=== PATIENT | female | born 1935 | race Caucasian/White ===

== ENCOUNTER 2024-12-25 10:40 | Inpatient (IN) | payer OTHER ==
--- OUTSIDE RECORDS SUMMARY | 2024-12-25 10:43 | XMS REPORT | Continuity of Care Document ---
Author Name Unknown Address [address] [place] [id number] [facility] Address [address] [place] [address] [address] [place] [address] Care Team Providers Care Data Collector Name Role Phone KOMAL RAHMAN Attending Clinician Unavailable Encounters Start Date/Time End Date/Time Encounter Type Admission Type Attending Clinicians Care Facility Care Department Encounter ID Source 2023-07-31 11:25:00 2023-07-31 11:25:00 Outpatient KOMAL LEYVA [facility] [id number] [facility]
--- NOTE | 2024-12-25 11:19 | RAD REPORT ---
EXAMINATION: Head C Spine Mpr Wo Con CLINICAL INDICATION: Female, 89 years old. PAIN TECHNIQUE: Axial CT images from the skull base to the vertex without intravenous contrast. Axial CT i mages through the cervical spine were obtained without intravenous contrast. Sagittal and coronal reformatted images were created from the data set. Coronal and sagittal reformatted images were creat ed from the data set. One or more of the following dose reduction techniques were used: Automated exposure control, adjustment of the mA and/or kV according to patient size, and/or iterative reconstr uction. Unless otherwise specified, incidental findings do not require dedicated imaging follow-up. [id number]. COMPARISON: 11/30/2024 FINDINGS: Head: INTRACRANIAL: No acute intracranial hemorrhage. No acute large vascular territory infarct. No hydroce phalus. No mass effect or midline shift. Mild chronic small vessel ischemic changes.Moderate cerebral atrophy. Remote left basal ganglia lacunar infarct versus dilated perivascular space. VASCULATURE: No visualized abnormalities in the arteries or dural venous sinuses. SCALP/SKULL: No calvarial fracture identified. No acute soft tissue abnormality. SINUSES: The visualized paranasal sinuses are mostly clear. No significant mastoid fluid. Cervical spine: ALIGNMENT: The cervical spine has normal alignment without scoliosis or spondylolisthesis. BONE: Vertebral body heights are maintained. No aggressive osseous lesions. DEGENERATIVE: No significant focal degenerative changes. SOFT TISSUE: No significant abnormalities in the soft tissue of the neck. The visualized lung apices are clear. IMPRESSION: No acute intracranial abnormality. No acute fracture or traumatic malalignment of the cervical spine.
[2024-12-25] MEDS ORDERED: NA CHLORIDE 0.9% 1,000 ML ONE (11:20)
[2024-12-25] MEDS ORDERED: NA CHLORIDE 0.9% 500 ML ONE (11:20)
[2024-12-25] MEDS ORDERED: CEFTRIAXONE 1000 MG/VIAL ONE (11:20)
[2024-12-25] MEDS ORDERED: NA CHLORIDE 0.9% 50 ML ONE (11:21)
--- NOTE | 2024-12-25 11:40 | RAD REPORT ---
EXAM: Chest Abd Pelvis Wo Con CLINICAL INDICATION: Female, 89 years old pain TECHNIQUE: CT chest, abdomen and pelvis was performed, without IV contrast, as per department protoco l. Axial, sagittal and coronal reconstructions were obtained. One or more of the following dose reduction techniques were used: Automated exposure control, adjustment of the mA and/or kV according to the patient size, and/or iterative reconstruction. Unless otherwise specified, incidental findings do not require dedicated imaging follow-up. [id number]. COMPARISON: 11/30/2024 FINDINGS: The lack of intravenous contrast limits the sensitivity of this exam for evaluation of solid visceral organs, vascular structures, and retroperitoneum. ---THORAX--- LOWER NECK AND CHEST WALL: Visualized thyroid gland and soft tissues are normal. MEDIASTINUM AND LYMPH NODES: No mediastinal mass or fluid collection. Normal size mediastinal, hilar, and axillary lymph nodes. Diffuse esophageal wall thickening. THORACIC AORTA: No thoracic aortic aneurysm. Atherosclerotic changes are present. PULMONARY ARTERIES: Enlarged main pulmonary arteries could indicate pulmonary artery hypertension. Un able to evaluate for pulmonary emboli due to either protocol or lack of contrast. HEART: Normal heart size. Moderate coronary artery calcifications.Small pericardial effusion. Aortic valve calcifications. LUNGS AND AIRWAYS: The lungs are clear bilaterally. 4 mm right lower lobe nodule is unchanged and cobb s not require follow-up. PLEURA: No pleural effusion. No pneumothorax. ---ABDOMEN/PELVIS--- UPPER GI: No significant abnormality. LIVER: Benign appearing low density liver lesions. No suspicious mass. GALLBLADDER/BILE DUCTS: No biliary ductal dilatation.? PANCREAS: No mass, ductal dilation, or winifred-pancreatic fluid. SPLEEN: Unremarkable. ADRENALS: Adrenal thickening without discrete mass. KIDNEYS AND URETERS: No hydronephrosis.Limited evaluation for renal lesions in the absence of IV cont rast.No renal calculi.No ureteral calculi. ABDOMINAL AORTA AND OTHER VESSELS: Moderate atherosclerotic changes without aortic aneurysm. PERITONEUM: No abnormal free fluid. No free air. LYMPH NODES: No pathologic lymphadenopathy. ABDOMINAL WALL: Unremarkable SMALL BOWEL/COLON: Wall thickening present at the ascending and proximal transverse colon. URINARY BLADDER: Underdistended but grossly unremarkable. REPRODUCTIVE ORGANS: No pathologic process. ---COMBINED--- MUSCULOSKELETAL: L1 vertebroplasty changes, similar. Remote right obturator ring fracture. ADDITIONAL FINDINGS: None. IMPRESSION: No evidence of significant trauma to the chest, abdomen, or pelvis. Wall thickening at the hepatic flexure likely reflecting a colitis. This is new from prior.
[2024-12-25 11:44] LABS: Absolute Lymphocytes (CBC) 0.8 K/uL (0.7-4.9); Hematocrit 33.6 % (36.0-45.0); Hemoglobin 11.3 g/dL (12.0-15.0); MCH 30.7 pg (27.0-35.0); MCHC 33.7 g/dL (32.0-36.0); MCV 91.1 fL (80-100); MPV 7.0 fL (7.6-11.3); Nucleated RBC Absolute Count 0.0 (0-0); Nucleated Red Blood Cells % 0.0 % (0-0); RBC Red Blood Cell Count 3.69 M/uL (3.86-4.86); White Blood Count 7.50 thou/uL (4.3-10.9)
[2024-12-25 11:54] LABS: PT Prothrombin Time 11.9 SECONDS (10-13.0); Protime INR 1.05
[2024-12-25 12:08] LABS: AST/SGOT 14 U/L (15-37); Albumin 3.6 g/dL (3.4-5.0); Albumin/Globulin Ratio 1.1 (1.1-1.8); Alkaline Phosphatase 62 U/L (45-117); Anion Gap 10.6 mEq/L (5.0-15.0); BUN Blood Urea Nitrogen 12 mg/dL (7-18); Bilirubin Indirect, Calculated 0.6 mg/dL (0.2-0.8); Globulin 3.3 g/dL (2.3-3.5); Glucose Level 120 mg/dL (74-106); Lipase 79 U/L (13-75); Magnesium 2.1 mg/dL (1.6-2.4); NT PRO-BNP 237 pg/mL (<450); Potassium 3.6 mEq/L (3.5-5.1); Troponin High Sensitivity 7.0 pg/mL (<58.9)
[2024-12-25 12:10] LABS: ALT/SGPT < 14 U/L (13-56)
--- NOTE | 2024-12-25 12:28 | RAD REPORT ---
EXAM: Chest Single View HISTORY: 89 years Female COUGH COMPARISON: No prior exams FINDINGS: LUNGS/PLEURA: The lungs are clear. No pleural effusions or pneumothorax. No pulmonary edema. CARDIAC/MEDIASTINUM: The cardiac silhouette is within normal limits. UPPER ABDOMEN: No significant abnormality. BONES: No acute abnormality. LINES/TUBES/OTHER: N/A IMPRESSION: No evidence of acute cardiopulmonary disease.
[2024-12-25] MEDS ORDERED: FAMOTIDINE 20 MG/2 ML VIAL IV ONE (13:15)
[2024-12-25] MEDS ORDERED: HYDROCORTISONE SUC 100 MG INJ ONE (13:15)
[2024-12-25 13:24] LABS: Sqamous Epithelial <5 /HPF (None Seen); Urine Culture Reflex Order NOT NEEDED; Urine Microscopic Reflex YN ORDER UMIC
--- NOTE | 2024-12-25 13:36 | ER ---
Nurse's Notes [facility] Name: Gloria Han Age: 89 yrs Sex: Female : 1935 Arrival Date: 12/25/2024 Time: 10:40 Bed 20 Private MD: Diagnosis: Weakness;Repeated falls;Fall on same level, unspecified;Dementia in other diseases classified elsewhere without behavioral disturbance;Anorexia;Noninfective gastroenteritis and colitis, unspecified Presentation: 12/25 10:49 Chief complaint: Patient states: Fell night in bathroom, got herself up. Her ll1 back started to hurt Monday and can only walk a few feet now. Coronavirus screen: Client denies travel out of the [place] in the last 14 days. At this time, the client does not indicate any symptoms associated with coronavirus-19. Ebola Screen: Patient denies travel to an Ebola-affected area in the 21 days before illness onset. Initial Sepsis Screen: Does the patient meet any 2 criteria? No. Patient's initial sepsis screen is negative. Does the patient have a suspected source of infection? No. Patient's initial sepsis screen is negative. Risk Assessment: Do you want to hurt yourself or someone else? Patient reports no desire to harm self or others. Onset of symptoms was December 19, 2024. 10:49 Method Of Arrival: Wheelchair ll1 10:49 Acuity: MONIE 3 ll1 13:00 Care prior to arrival: None. Mechanism of Injury: Fall from standing position. Trauma db event details: Injury occurred in the [facility]. Historical: - Allergies: 10:48 amlodipine; ll1 10:48 Clindamycin; ll1 10:48 Codeine; ll1 - PMHx: 10:48 kidney disease; lumbarsacaral spondylosis with radiculopathy; Dementia; Hypertensive ll1 disorder; insomia; Gastroesophageal reflux disease; degenerative scoliosis; Major Depressive Disorder; lumbar back pain; Anemia; Osteoporotic verebral compression FX L1; Parkinson's disease; - Immunization history:: Adult Immunizations up to date. - Infectious Disease History:: Denies. - Immunization history: Last tetanus immunization: unknown. - Social history:: Smoking status: Patient denies any tobacco usage or history of. - Family history:: not pertinent. Screenin:42 [facility] ED Fall Risk Assessment (Adult) History of falling in the last 3 months, db including since admission Yes- fall prone (multiple falls) (3 pts) Confusion or Disorientation Yes (5 pts) Intoxicated or Sedated No (0 pts) Impaired Gait Yes (1 pt) Mobility Assist Device Used Yes (1 pt) Altered Elimination No (0 pt) Score/Fall Risk Level 3 or more points = High Risk Oriented to surroundings, Maintained a safe environment, Hourly rounding (assess needs \T\ fall precautionary measures) done, Remained w/in arm's length of patient and in sight while toileting, Remained with patient while ambulating. Abuse screen: Denies threats or abuse. Denies injuries from another. Nutritional screening: No deficits noted. Tuberculosis screening: No symptoms or risk factors identified. Primary Survey: 12:00 NO uncontrolled hemorrhage observed. A: The client is awake and alert. The airway is db patent. The client is alert. Airway: patent. Breathing/Chest: Spontaneous respiratory effort, equal unlabored respirations, breath sounds clear bilaterally, regular pattern, symmetrical chest rise and fall. Respiratory effort: spontaneous, unlabored. Circulation: No external hemorrhage present. Regular and strong central pulse, skin warm/dry/normal color. Disability Client is alert. Exposure/Environment: A warming method has been applied: A warm blanket has been provided to the patient. Reassessment Alertness and Airway: Awake and alert. The airway is patent. Breathing: Spontaneous respiratory effort, equal unlabored respirations, breath sounds clear bilaterally, regular pattern with symmetrical chest rise and fall. Circulation: No external hemorrhage noted. Regular and strong central pulse, skin warm/dry/normal color. Disability: Alert. Assessment: 11:30 Reassessment: Patient appears in no apparent distress at this time. Patient and/or db family updated on plan of care and expected duration. Pain level reassessed. PT ATTEMPTED TO URINATE IN HAT AND MISSED. WILL ATTEMPT AGAIN AFTER FLUID BOLUS. General: Appears in no apparent distress. comfortable, Behavior is calm, cooperative. Neuro: Level of Consciousness is awake, alert, obeys commands, Oriented to person, place, time, situation. 13:05 Reassessment: PT AMBULATORY TO RESTROOM. db 14:00 Reassessment: Patient appears in no apparent distress at this time. Patient and/or db family updated on plan of care and expected duration. Pain level reassessed. 15:03 Reassessment: Patient appears in no apparent distress at this time. Patient and/or db family updated on plan of care and expected duration. Pain level reassessed. PT AMBULATORY TO RESTROOM. General: Appears in no apparent distress. comfortable, Behavior is calm, cooperative, appropriate for age. 15:06 Respiratory: Airway is patent Respiratory effort is even, unlabored, Respiratory db pattern is regular, symmetrical. 16:00 Reassessment: Patient appears in no apparent distress at this time. Patient and/or db family updated on plan of care and expected duration. Pain level reassessed. General: Appears in no apparent distress. comfortable. Pain: Denies pain. 17:30 Reassessment: Patient appears in no apparent distress at this time. Patient and/or db family updated on plan of care and expected duration. Pain level reassessed. Vital Signs: 10:49 BP 104 / 47; Pulse 83; Resp 16; Temp 97.2; Pulse Ox 100% ; Weight 49.9 kg; Height 5 ft. ll1 8 in. ; Pain 0/10; 13:05 BP 137 / 71; Pulse 76; Resp 16; Pulse Ox 99% on R/A; db 13:30 BP 130 / 54; Pulse 76; Resp 16; Pulse Ox 99% ; db 14:00 BP 111 / 47; Pulse 74; Resp 14; Pulse Ox 99% on R/A; db 15:00 BP 131 / 58; Pulse 75; Resp 14; Pulse Ox 99% ; db 16:30 BP 149 / 57; Pulse 76; Resp 18; Pulse Ox 98% on R/A; db 17:30 BP 130 / 59; Pulse 71; Resp 16; Pulse Ox 99% on R/A; db 10:49 Body Mass Index 16.73 (49.90 kg, 172.72 cm) ll1 10:49 Pain Scale: Adult ll1 [place] Coma Score: 13:22 Eye Response: spontaneous(4). Motor Response: obeys commands(6). Verbal Response: db oriented(5). Total: 15. Trauma Score (Adult): 13:22 Eye Response: spontaneous(1); Verbal Response: oriented(1); Motor Response: obeys db commands(2); Systolic BP: > 89 mm Hg(4); Respiratory Rate: 10 to 29 per min(4); Donna Score: 15; Trauma Score: 12 ED Course: 10:43 Patient arrived in ED. im 10:44 Tima Cordon MD is Attending Physician. eloy 10:48 Arm band placed on. ll1 10:54 Triage completed. ll1 11:12 Chest Abd Pelvis Wo Con In Process Unspecified. EDMS 11:13 Head C Spine Mpr Wo Con In Process Unspecified. EDMS 11:20 XRAY Chest (1 view) In Process Unspecified. EDMS 11:35 Initial lab(s) drawn, by me, sent to lab. Inserted saline lock: 20 gauge in right db antecubital area, using aseptic technique. Blood collected. Flushed with 10 mL NS. 11:40 Yris Alford, RN is Primary Nurse. db 11:43 Patient has correct armband on for positive identification. Bed in low position. Call db light in reach. Side rails up X 1. Client placed on continuous cardiac and pulse oximetry monitoring. NIBP monitoring applied. groundwater monitoring technician on. Pulse ox on. NIBP on. Warm blanket given. 11:47 EKG done, by water restoration technician. ts3 12:00 Thermoregulation: warm blanket given to patient. db 13:34 Quoc Whitman is Hospitalizing Provider. [facility] 17:35 Provided Education on: ADMISSION. db 17:35 No provider procedures requiring assistance completed. Patient admitted, IV remains in db place. Administered Medications: 11:35 Drug: NS 0.9% IV 500 ml 500 ml IV at 1 bolus once; to be given as a bolus over 30 db minutes Volume: 500 ml; Route: IV; Rate: 1 bolus; Site: right antecubital; 15:07 Follow up: IV Status: Completed infusion; IV Intake: 500ml db 15:07 Follow up: Response: No adverse reaction db 11:40 Drug: Rocephin IV 1 grams IV at per protocol once; Given slow IV push per pharmacy db instructions Route: IV; Rate: per protocol; Site: right antecubital; 15:07 Follow up: Response: No adverse reaction; IV Status: Completed infusion; IV Intake: 50mldb 12:30 Drug: NS 0.9% IV 1000 ml IV at 125 ml/hr once Route: IV; Rate: 125 ml/hr; Site: right db antecubital; 17:00 Follow up: IV Status: Infusion continued upon admission db 13:40 Drug: Solu-CORTEF IVP 100 mg IVP once Route: IVP; Site: right antecubital; db 15:07 Follow up: Response: No adverse reaction db 13:40 Drug: Famotidine IVP 20 mg IVP once; dilute with 10 mL 0.9% NaCl; give over 2 minutes db Route: IVP; Site: right antecubital; 15:06 Follow up: Response: No adverse reaction db Medication: 14:00 VIS not applicable for this client. db Intake: 15:07 IV: 500ml; Total: 500ml. db 15:07 IV: 50ml; Total: 550ml. db Outcome: 13:35 Decision to Hospitalize by Provider. eloy 17:35 Admitted to Med/surg room 2 nd floor, db 17:35 Condition: stable 17:35 Instructed on the need for admit, 17:37 Patient left the ED. bc6 Signatures: Dispatcher [employer] EDSD Tima Cordon MD MD cha Lewis, Lynsay RN RN ll1 Yris Alford RN RN Pamela Cast bc6 Tanika Hopson Taisha ts3 Corrections: (The following items were deleted from the chart) 15:06 15:03 Reassessment: Patient appears in no apparent distress at this time. Patient db and/or family updated on plan of care and expected duration. Pain level reassessed. Patient is alert, oriented x 3, equal unlabored respirations, skin warm/dry/pink. PT AMBULATORY TO RESTROOM db 15:06 11:42 [facility] ED Fall Risk Assessment (Adult) History of falling in the last 3 months, db including since admission No falls in past 3 months (0 pts) Confusion or Disorientation Yes (5 pts) Intoxicated or Sedated No (0 pts) Impaired Gait No (0 pts) Mobility Assist Device Used No (0 pt) Altered Elimination No (0 pt) Score/Fall Risk Level 3 or more points = High Risk Oriented to surroundings, Maintained a safe environment, db
--- NOTE | 2024-12-25 13:36 | EDPHYS ---
Physician Documentation [facility] Name: Gloria Han Age: 89 yrs Sex: Female : 1935 Arrival Date: 12/25/2024 Time: 10:40 Bed 20 Private MD: MARLYN Physician Tima Cordon HPI: 12/25 13:22 This 89 yrs old Female presents to ER via Wheelchair with complaints of Fall eloy Injury, Urinary Problem. 13:22 Details of fall: The patient fell from an upright position, while walking. Onset: The eloy symptoms/episode began/occurred yesterday. Associated injuries: The patient sustained no obvious injury. Associated injuries: The patient sustained no obvious injury, neck injury, upper back injury, injury to the low back, decreased range of motion. Severity of symptoms: At their worst the symptoms were mild, in the emergency department the symptoms are unchanged. The patient has experienced similar episodes in the past, several times. Historical: - Allergies: 10:48 amlodipine; ll1 10:48 Clindamycin; ll1 10:48 Codeine; ll1 - PMHx: 10:48 kidney disease; lumbarsacaral spondylosis with radiculopathy; Dementia; Hypertensive ll1 disorder; insomia; Gastroesophageal reflux disease; degenerative scoliosis; Major Depressive Disorder; lumbar back pain; Anemia; Osteoporotic verebral compression FX L1; Parkinson's disease; - Immunization history:: Adult Immunizations up to date. - Infectious Disease History:: Denies. - Immunization history: Last tetanus immunization: unknown. - Social history:: Smoking status: Patient denies any tobacco usage or history of. - Family history:: not pertinent. ROS: 13:22 Constitutional: Negative for fever, chills, and weight loss, Eyes: Negative for injury, eloy pain, redness, and discharge, ENT: Negative for injury, pain, and discharge, Neck: Negative for injury, pain, and swelling, Cardiovascular: Negative for chest pain, palpitations, and edema, Respiratory: Negative for shortness of breath, cough, wheezing, and pleuritic chest pain, Abdomen/GI: Negative for abdominal pain, nausea, vomiting, diarrhea, and constipation, : Negative for injury, bleeding, discharge, and swelling, MS/Extremity: Negative for injury and deformity, Skin: Negative for injury, rash, and discoloration, Psych: Negative for depression, anxiety, suicide ideation, homicidal ideation, and hallucinations, Allergy/Immunology: Negative for hives, rash, and allergies, Endocrine: Negative for neck swelling, polydipsia, polyuria, polyphagia, and marked weight changes, Hematologic/Lymphatic: Negative for swollen nodes, abnormal bleeding, and unusual bruising, 13:22 Back: Positive for decreased range of motion, pain at rest, pain with movement, of the thoracic area and lumbar area, 13:22 MS/extremity: Negative for acute changes, injury or acute deformity, decreased range of motion, Exam: 13:22 Constitutional: This is a well developed, well nourished patient who is awake, alert, eloy and in no acute distress. Head/Face: Normocephalic, atraumatic. Eyes: Pupils equal round and reactive to light, extra-ocular motions intact. Lids and lashes normal. Conjunctiva and sclera are non-icteric and not injected. Cornea within normal limits. Periorbital areas with no swelling, redness, or edema. ENT: Nares patent. No nasal discharge, no septal abnormalities noted. Tympanic membranes are normal and external auditory canals are clear. Oropharynx with no redness, swelling, or masses, exudates, or evidence of obstruction, uvula midline. Mucous membranes moist. Neck: Trachea midline, no thyromegaly or masses palpated, and no cervical lymphadenopathy. Supple, full range of motion without nuchal rigidity, or vertebral point tenderness. No Meningismus. Chest/axilla: Normal chest wall appearance and motion. Nontender with no deformity. No lesions are appreciated. Cardiovascular: Regular rate and rhythm with a normal S1 and S2. No gallops, murmurs, or rubs. Normal PMI, no JVD. No pulse deficits. Respiratory: Lungs have equal breath sounds bilaterally, clear to auscultation and percussion. No rales, rhonchi or wheezes noted. No increased work of breathing, no retractions or nasal flaring. Abdomen/GI: Soft, non-tender, with normal bowel sounds. No distension or tympany. No guarding or rebound. No evidence of tenderness throughout. Female : Normal external genitalia. Skin: Warm, dry with normal turgor. Normal color with no rashes, no lesions, and no evidence of cellulitis. MS/ Extremity: Pulses equal, no cyanosis. Neurovascular intact. Full, normal range of motion., bilateral aka Neuro: Awake and alert, GCS 15, oriented to person, place, time, and situation. Cranial nerves II-XII grossly intact. Motor strength 5/5 in all extremities. Sensory grossly intact. Cerebellar exam normal. Normal gait. Psych: Awake, alert, with orientation to person, place and time. Behavior, mood, and affect are within normal limits. 13:22 ECG was reviewed by the Attending Physician. 13:22 Back: pain, that is mild, that is moderate, ROM is painful, normal spinal alignment noted, CVA tenderness, is absent, vertebral tenderness, is not appreciated, Vital Signs: 10:49 BP 104 / 47; Pulse 83; Resp 16; Temp 97.2; Pulse Ox 100% ; Weight 49.9 kg; Height 5 ft. ll1 8 in. ; Pain 0/10; 13:05 BP 137 / 71; Pulse 76; Resp 16; Pulse Ox 99% on R/A; db 13:30 BP 130 / 54; Pulse 76; Resp 16; Pulse Ox 99% ; db 14:00 BP 111 / 47; Pulse 74; Resp 14; Pulse Ox 99% on R/A; db 15:00 BP 131 / 58; Pulse 75; Resp 14; Pulse Ox 99% ; db 16:30 BP 149 / 57; Pulse 76; Resp 18; Pulse Ox 98% on R/A; db 17:30 BP 130 / 59; Pulse 71; Resp 16; Pulse Ox 99% on R/A; db 10:49 Body Mass Index 16.73 (49.90 kg, 172.72 cm) ll1 10:49 Pain Scale: Adult ll1 Donna Coma Score: 13:22 Eye Response: spontaneous(4). Motor Response: obeys commands(6). Verbal Response: db oriented(5). Total: 15. Trauma Score (Adult): 13:22 Eye Response: spontaneous(1); Verbal Response: oriented(1); Motor Response: obeys db commands(2); Systolic BP: > 89 mm Hg(4); Respiratory Rate: 10 to 29 per min(4); Donna Score: 15; Trauma Score: 12 MDM: 10:44 Medical Screening Exam initiated eloy 10:50 Medical Screening Exam initiated eloy 13:28 Differential diagnosis: closed head injury, contusion, fracture, multiple trauma, eloy sprain, strain. Data reviewed: vital signs, nurses notes, EMS record, lab test result(s), EKG, radiologic studies, CT scan, plain films. Consideration of Admission/Observation Patient was admitted/placed on observation. Escalation of care including admission/observation considered. I considered the following discharge prescriptions or medication management in the emergency department Medications were administered in the Emergency Department. See MAR. Independent interpretation of the following test(s) in the Emergency Department EKG: See my EKG interpretation above. Test considered but Not performed: MRI: no mri lumbar, brain. Historians other than the Patient: Family Member: family well informed. Care significantly affected by the following chronic conditions: Hypertension, Chronic Kidney Disease, lumbar pain, radiculopathy. Counseling: I had a detailed discussion with the patient and/or guardian regarding the historical points, exam findings, and any diagnostic results supporting the discharge/admit diagnosis, lab results, radiology results, the need for further work-up and treatment in the hospital. 12/25 10:47 Order name: Basic Metabolic Panel; Complete Time: 12:48 eloy 12/25 10:47 Order name: CBC with Diff; Complete Time: 12:48 eloy 12/25 10:47 Order name: LFT's; Complete Time: 12:48 12/25 10:47 Order name: Magnesium; Complete Time: 12:48 eloy 12/25 10:47 Order name: NT PRO-BNP; Complete Time: 12:48 12/25 10:47 Order name: PT-INR; Complete Time: 12:48 12/25 10:47 Order name: Troponin HS; Complete Time: 12:48 12/25 10:47 Order name: Lipase; Complete Time: 12:48 eloy 12/25 10:47 Order name: UA Rfx Farhat Cult if indicated eloy 12/25 16:28 Order name: CBC with Automated Diff EDMS 12/25 16:28 Order name: CBC with Automated Diff EDMS 12/25 16:28 Order name: Comprehensive Metabolic Panel EDMS 12/25 16:28 Order name: Comprehensive Metabolic Panel EDMS 12/25 16:28 Order name: Creatine Phosphokinase EDMS 12/25 16:28 Order name: Creatine Phosphokinase EDMS 12/25 16:28 Order name: Creatine Phosphokinase EDMS 12/25 16:28 Order name: Creatine Phosphokinase EDMD 12/25 16:28 Order name: Lipid Profile EDMD 12/25 16:28 Order name: Lipid Profile EDMD 12/25 16:28 Order name: Protime (+INR) EDMD 12/25 16:28 Order name: Protime (+INR) EDMD 12/25 16:28 Order name: PTT, Activated Partial Thromb EDMD 12/25 16:28 Order name: PTT, Activated Partial Thromb EDMD 12/25 16:30 Order name: C-Reactive Protein EDMD 12/25 16:30 Order name: Iron EDMD 12/25 16:30 Order name: Procalcitonin EDMD 12/25 16:30 Order name: Vitamin B12 Level EDMD 12/25 10:47 Order name: XRAY Chest (1 view); Complete Time: 12:48 [facility] [place] 12/25 10:54 Order name: Chest Abd Pelvis Wo Con; Complete Time: 12:48 [facility] 12/25 10:56 Order name: Head C Spine Mpr Wo Con; Complete Time: 12:48 [facility] 12/25 10:47 Order name: Cardiac monitoring; Complete Time: 11:40 [facility] 12/25 10:47 Order name: EKG - Nurse/Tech; Complete Time: 11:47 [facility] [place] 12/25 10:47 Order name: IV Saline Lock; Complete Time: 11:41 [facility] [place] 12/25 10:47 Order name: Labs collected and sent; Complete Time: 11:41 [facility] [place] 12/25 10:47 Order name: O2 Per Protocol; Complete Time: 11:41 [facility] [place] 12/25 10:47 Order name: O2 Sat Monitoring; Complete Time: 11:41 [facility] [place] 12/25 12:50 Order name: Misc. Order: GET UA; Complete Time: 13:21 [facility] [place] EC:22 Rate is 78 beats/min. Rhythm is regular. QRS [place] is Normal. FL interval is normal. QRS eloy interval is normal. QT interval is normal. No Q waves. T waves are Normal. No ST changes noted. Clinical impression: NSR w/ Non-specific ST/T Changes and No evidence of ischemia. Interpreted by me. Reviewed by me. Administered Medications: 11:35 Drug: NS 0.9% IV 500 ml 500 ml IV at 1 bolus once; to be given as a bolus over 30 db minutes Volume: 500 ml; Route: IV; Rate: 1 bolus; Site: right antecubital; 15:07 Follow up: IV Status: Completed infusion; IV Intake: 500ml db 15:07 Follow up: Response: No adverse reaction db 11:40 Drug: Rocephin IV 1 grams IV at per protocol once; Given slow IV push per pharmacy db instructions Route: IV; Rate: per protocol; Site: right antecubital; 15:07 Follow up: Response: No adverse reaction; IV Status: Completed infusion; IV Intake: 50mldb 12:30 Drug: NS 0.9% IV 1000 ml IV at 125 ml/hr once Route: IV; Rate: 125 ml/hr; Site: right db antecubital; 17:00 Follow up: IV Status: Infusion continued upon admission db 13:40 Drug: Solu-CORTEF IVP 100 mg IVP once Route: IVP; Site: right antecubital; db 15:07 Follow up: Response: No adverse reaction db 13:40 Drug: Famotidine IVP 20 mg IVP once; dilute with 10 mL 0.9% NaCl; give over 2 minutes db Route: IVP; Site: right antecubital; 15:06 Follow up: Response: No adverse reaction db Disposition Summary: 12/25/24 13:35 Hospitalization Ordered Notes: Hospitalization Status: Inpatient Admission eloy Provider: Quoc Whitman cha [facility] Condition: Fair eloy Problem: new eloy Symptoms: have improved eloy Bed/Room Type: Standard eloy Room Assignment: 229(12/25/24 16:44) bd Diagnosis - Weakness eloy - Repeated falls eloy - Fall on same level, unspecified eloy - Dementia in other diseases classified elsewhere without behavioral disturbance eloy - Anorexia eloy - Noninfective gastroenteritis and colitis, unspecified eloy Forms: - Medication Reconciliation Form eloy - SBAR form eloy - Leadership Thank You Letter eloy Signatures: Dispatcher [employer] EDMS Radha Koo Corey, MD MD cha Lewis, Lynsay RN RN ll1 Yris Alford RN RN db Corrections: (The following items were deleted from the chart) 10:47 10:47 BASIC METABOLIC PANEL+C.LAB.BRZ ordered. EDMS EDMS 10:47 10:47 CBC+H.LAB.BRZ ordered. EDMS EDMS 10:47 10:47 HEPATIC FUNCTION+C.LAB.BRZ ordered. EDMS EDMS 10:47 10:47 MAGNESIUM+C.LAB.BRZ ordered. EDMS EDMS 10:47 10:47 PROBNP+C.LAB.BRZ ordered. EDMS EDMS 10:47 10:47 PROTIME (+INR)+COAG.LAB.BRZ ordered. EDMS EDMS 10:47 10:47 Troponin High Sensitivity+C.LAB.BRZ ordered. EDMS EDMS 10:47 10:47 LIPASE+C.LAB.BRZ ordered. EDMS EDMS 10:47 10:47 UA Rfx Farhat Cult if indicated+U.LAB.BRZ ordered. EDMS EDMS 10:47 10:47 Chest Single View+RAD.RAD.BRZ ordered. EDMS EDMS 10:47 10:47 Head C Spine Cap Wo Con+CT.RAD.BRZ ordered. EDMS EDMS 16:44 13:35 eloy bd
[2024-12-25] MEDS ORDERED: ACETAMINOPHEN 500 MG TAB PO PRN (16:24)
[2024-12-25] MEDS ORDERED: ONDANSETRON 4 MG/2 ML VIAL IV PRN (16:24)
--- NOTE | 2024-12-25 16:27 | P.HP ---
Certification for Inpatient Patient admitted to: Inpatient With expected LOS: >2 Midnights Patient will require the following post-hospital care: Rehabilitation Practitioner: I am a practitioner with admitting privileges, knowledge of patient current condition, hospital course, and medical plan of care. Services: Services provided to patient in accordance with Admission requirements found in Title 42 Section 412.3 of the Code of Federal Regulations Patient History Date of Service: 12/25/24 Reason for admission: Status post fall with severe pain on ambulation History of Present Illness: Patient is an 89-year-old female who has a history of Alzheimer's dementia as well as Parkinson disease lives at [facility] who presented to the emergency room with pain on ambulating. Patient normally gets around fairly well at the assisted living, but over the last few weeks she has found it more and more difficult to ambulate. She apparently had fallen a week ago and since the fall she suffered a hematoma to the right pelvis. She has a lot of bruising in that region. Whenever she puts any pressure on it she decides not to move. The family decided to come into the hospital for further evaluation. In the ER, she is having a lot of pain and she has dementia so she does not remember everything that happened during the fall. However she does state that she is having a lot of pain whenever she moves her right leg. Patient will be admitted to the hospital for more aggressive care. She looks dehydrated with her lipase being elevated. Patient has not had much of an appetite since the fall. At this time patient will be admitted to the hospital for further workup. Allergies codeine Allergy (Unknown, Verified 12/25/24 19:54) unverified amlodipine Allergy (Verified 12/25/24 19:54) unverified clindamycin Allergy (Verified 12/25/24 19:54) Rash Home Medications: Acetaminophen [Tylenol Extra Strength] 500 mg PO BID 12/25/24 Acetaminophen [Tylenol] 650 mg PO Q6H PRN 12/25/24 Carbidopa/Levodopa [Carbidopa-Levodopa 10-100 Tab] 1 each PO TID 12/25/24 Donepezil HCl 10 mg PO DAILY 12/25/24 Hydralazine HCl 50 mg PO QID 12/25/24 Lidocaine 4% Patch [Lidoderm 5% Patch*] 1 patch .ROUTE BID 12/25/24 Memantine HCl 5 mg PO DAILY 12/25/24 Potassium Chloride 10 meq PO DAILY 12/25/24 Sertraline [Zoloft*] 25 mg PO DAILY 12/25/24 Tramadol HCl [Ultram] 50 mg PO Q6HR PRN 12/25/24 dilTIAZem HCL [Diltiazem 24Hr ER] 240 mg PO DAILY 12/25/24 lisinopriL [Lisinopril] 20 mg PO BID 12/25/24 Ensure Enlive 237 ml PO BID #60 can 12/28/24 - Past Medical/Surgical History -: Alzheimer's dementia -: Depression -: Parkinson disease -: Hypertension Past Surgical History: Patient denies surgical history - Family History Father Family History: Reviewed- Non-Contributory - Social History Smoking Status: Former smoker Alcohol use: No CD- Drugs: No Review of Systems 10-point ROS is otherwise unremarkable Physical Examination - Physical Exam General: Alert, In no apparent distress, Oriented x2 HEENT: Atraumatic, PERRLA, Mucous membr. moist/pink, EOMI, Sclerae nonicteric Neck: Supple, 2+ carotid pulse no bruit, No LAD, Without JVD or thyroid abnormality Respiratory: Clear to auscultation bilaterally, Normal air movement Cardiovascular: Regular rate/rhythm, Normal S1 S2, No murmurs Gastrointestinal: Normal bowel sounds, Soft and benign, Non-distended, No tenderness Musculoskeletal: No clubbing, No swelling, No tenderness Integumentary: No rashes Neurological: Normal speech, Sensation intact, Cranial nerves 3-12 intact, Normal affect, Abnormal gait, Abnormal strength, Abnormal tone Lymphatics: No axilla or inguinal lymphadenopathy - Studies Laboratory Data (last 24 hrs) 12/25/24 12/25/24 12/25/24 11:35 11:35 11:35 WBC 7.50 Hgb 11.3 L Hct 33.6 L Plt Count 329 PT 11.9 INR 1.05 Sodium 132 L Potassium 3.6 BUN 12 Creatinine 0.94 Glucose 120 H Magnesium 2.1 Total Bilirubin 0.8 AST 14 L ALT < 14 Alkaline Phosphatase 62 Lipase 79 H Assessment & Plan - Problems (Diagnosis) (1) Parkinsons disease Current Visit: Yes Status: Acute (2) 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 Patient will will have his H&H monitored. Will get physical therapy to work with patient. Patient will get pain control. Patient will also need physical therapy and Occupational Therapy as patient's Parkinson disease has progressed somewhat as she has developed some muscular atrophy and weakness with gait ataxia related to cerebellar dysfunction and because of the Parkinson disease. Will see how patient improves. She has been getting around fairly well at the assisted living prior to this fall. This is left her debilitated and 89 if she becomes bedbound the risk of increased morbidity and mortality increased significantly with poor long-term prognosis. It is imperative that we get her up and ambulating and she continues to function as she has been otherwise her long-term prognosis is poor. At this time patient will be admitted to the hospital and we will evaluate her with physical therapy. She may need long-term inpatient rehab and then hopefully we can get her back to her baseline functioning. 2. History of hypertension; blood pressure has been elevated since the fall. She is having a lot of pain and she has been eating or drinking well. Will continue monitoring her hemodynamics closely. Risk of strokes increase significantly at her age so we will need to monitor her hemodynamics closely 3. History of Parkinson disease. Patient has developed progressive cerebellar ataxia as well as swallowing dysfunction. Speech therapy will be consulted. Patient has Parkinson disease and if her swallowing worsens she is at high risk of aspiration pneumonia. Will continue monitoring this closely 4. GI DVT prophylaxis Discharge Plan: Home - Advance Directives Does patient have a Living Will: No Does patient have a Durable POA for Healthcare: No - Code Status/Comfort Care Code Status Assessed: Yes Code Status: Full Code - Malnutrition Assessment Physician Review of Nutrition Assessment: I am in agreement with the nutrition assessment of this patient, it supports the Diagnosis as stated above, we will initiate treatment per Dietitian recommendation. Physician Review: Patient Assessed, Agree with Above Assessment and Plan Critical Care: No Time Spent Managing PTS Care (In Minutes): 45
[2024-12-25] MEDS: NA CHLORIDE 0.9% 1,000 ML IV SCH (18:17)
[2024-12-25] MEDS: PIPER TAZO 3.375 GM in NA CHLORIDE 0.9% 100 ML IV SCH (18:17)
[2024-12-25 18:43] VITALS: BMI 16.7
[2024-12-26] MEDS: DIPHENHYDRAMINE 50 MG/ML VIAL IV ONE (00:05)
[2024-12-26 00:59] VITALS: O2SAT 98
[2024-12-26] MEDS: MORPHINE 2 MG/ML SYR IV PRN (01:40)
[2024-12-26 08:55] LABS: Absolute Lymphocytes (CBC) 1.2 K/uL (0.7-4.9); Hematocrit 31.8 % (36.0-45.0); Hemoglobin 10.9 g/dL (12.0-15.0); MCH 30.8 pg (27.0-35.0); MCHC 34.2 g/dL (32.0-36.0); MCV 90.0 fL (80-100); MPV 7.1 fL (7.6-11.3); Nucleated RBC Absolute Count 0.0 (0-0); Nucleated Red Blood Cells % 0.0 % (0-0); RBC Red Blood Cell Count 3.53 M/uL (3.86-4.86); White Blood Count 9.10 thou/uL (4.3-10.9)
[2024-12-26 09:01] LABS: PT Prothrombin Time 11.3 SECONDS (10-13.0); PTT, Activated Partial Thromb 26.7 SECONDS (27.2-37.4); Protime INR 1.0
[2024-12-26 09:15] LABS: ALT/SGPT 18.0 U/L (13-56); AST/SGOT 14.0 U/L (15-37); Albumin 3.6 g/dL (3.4-5.0); Albumin/Globulin Ratio 1.2 (1.1-1.8); Alkaline Phosphatase 51.0 U/L (45-117); Anion Gap 9.2 mEq/L (5.0-15.0); BUN Blood Urea Nitrogen 9.0 mg/dL (7-18); Globulin 3.0 g/dL (2.3-3.5); Glucose Level 93.0 mg/dL (74-106); HDL Cholesterol 92.0 mg/dL (40-60); LDL Cholesterol, Calculated 69.0 mg/dL (<130); LDL Cholesterol,Calc NonReport 69.0; Potassium 3.2 mEq/L (3.5-5.1)
[2024-12-26 09:34] LABS: C-Reactive Protein 12.0 mg/L (<3.00); Iron 36.0 ug/dL (50-170); Lipase 118.0 U/L (13-75)
[2024-12-26] MEDS: PIPER TAZO 3.375 GM in NA CHLORIDE 0.9% 100 ML IV SCH (18:29)
[2024-12-26] MEDS: ENSURE ENLIVE 237 ML CAN PO SCH (20:39)
[2024-12-26] MEDS ORDERED: HALOPERIDOL LACT 5 MG/ML INJ IV PRN (21:31)
[2024-12-27] MEDS ORDERED: ACETAMINOPHEN 325 MG TABLET PO PRN (08:22)
[2024-12-27] MEDS ORDERED: TRAMADOL HCL 50 MG TAB PO PRN (08:22)
[2024-12-27] MEDS ORDERED: HYDRALAZINE HCL 20 MG/ML VIAL IV PRN (08:24)
[2024-12-27] MEDS ORDERED: CARBIDOPA PO SCH (09:00)
[2024-12-27] MEDS ORDERED: LEVODOPA PO SCH (09:00)
[2024-12-27] MEDS: DILTIAZEM HCL 120 MG SR CAP PO SCH (09:03)
[2024-12-27] MEDS: SERTRALINE HCL 50 MG TAB PO SCH (09:04)
[2024-12-27] MEDS: MEMANTINE HCL 10 MG TABLET PO SCH (09:04)
[2024-12-27] MEDS: ACETAMINOPHEN 500 MG TAB PO SCH (09:07)
[2024-12-27] MEDS: HYDRALAZINE HCL 25 MG TABLET PO SCH (09:09)
[2024-12-27] MEDS: CARBIDOPA/LEVODOPA 25/100 TAB PO SCH (10:36)
[2024-12-27] MEDS: METHYLPREDNISOLONE 40 MG INJ IV ONE (10:56)
[2024-12-27] MEDS ORDERED: MORPHINE 2 MG/ML SYR IV PRN (12:12)
[2024-12-27] MEDS ORDERED: CARBIDOPA/LEVODOPA 25/100 TAB PO SCH (13:00)
[2024-12-27] MEDS: LEVODOPA PO SCH (14:40)
[2024-12-27] MEDS: CARBIDOPA PO SCH (14:40)
[2024-12-27] MEDS: DONEPEZIL HCL 5 MG TAB PO SCH (20:46)
--- NOTE | 2024-12-28 15:48 | P.PN ---
Subjective Date of Service: 12/26/24 Patient has improved somewhat. She was able to put some pressure on the right leg. She is still have some difficulty ambulating. Family at bedside. Will try to get a upright walker. Swelling was assessed that she did have some difficulty with pulling the food but she was able to swallow it okay. She will need some increased guidance to prevent aspiration. Aspiration precaution will be instructed. Patient will need continued instruction as to maybe guide her with therapy as well. Review of Systems 10-point ROS is otherwise unremarkable Physical Examination - Vital Signs Temperature: 97.5 F Blood Pressure: 158/69 Pulse: 78 Respirations: 15 Pulse Ox (%): 98 - Physical Exam General: Alert, In no apparent distress HEENT: Atraumatic, PERRLA, EOMI Neck: Supple, JVD not distended Respiratory: Clear to auscultation bilaterally, Normal air movement Cardiovascular: Regular rate/rhythm, Normal S1 S2 Gastrointestinal: Normal bowel sounds, Soft and benign, Non-distended, No tenderness Musculoskeletal: No tenderness Integumentary: No rashes Neurological: Abnormal strength, Abnormal tone, Abnormal sensation, Abnormal affect, Dementia Lymphatics: No axilla or inguinal lymphadenopathy - Studies Medications List Reviewed: Yes Assessment & Plan - Problems (Diagnosis) (1) Parkinsons disease Current Visit: Yes Status: Acute (2) 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 Patient will will have his H&H monitored. Will get physical therapy to work with patient. Patient will get pain control. Patient will also need physical therapy and Occupational Therapy as patient's Parkinson disease has progressed somewhat as she has developed some muscular atrophy and weakness with gait ataxia related to cerebellar dysfunction and because of the Parkinson disease. Will see how patient improves. She has been getting around fairly well at the assisted living prior to this fall. This is left her debilitated and 89 if she becomes bedbound the risk of increased morbidity and mortality increased significantly with poor long-term prognosis. It is imperative that we get her up and ambulating and she continues to function as she has been otherwise her l zeke-term prognosis is poor. At this time patient will be admitted to the hospital and we will evaluate her with physical therapy. She may need long-term inpatient rehab and then hopefully we can get her back to her baseline functioning. 2. History of hypertension; blood pressure has been elevated since the fall. She is having a lot of pain and she has been eating or drinking well. Will continue monitoring her hemodynamics closely. Risk of strokes increase significantly at her age so we will need to monitor her hemodynamics closely 3. History of Parkinson disease. Patient has developed progressive cerebellar ataxia as well as swallowing dysfunction. Speech therapy will be consulted. Patient has Parkinson disease and if her swallowing worsens she is at high risk of aspiration pneumonia. Will continue monitoring this closely 4. GI DVT prophylaxis - Advance Directives Does patient have a Living Will: No Does patient have a Durable POA for Healthcare: No - Code Status/Comfort Care Code Status: Full Code Physician Review: Patient Assessed, Agree with Above Assessment and Plan
--- NOTE | 2024-12-28 15:50 | P.PN ---
Date of Service: 12/27/24 Subjective Patient is participating more with physical therapy. Ambulating about 50 feet. Still having a lot of pain and tenderness. Her gait is very ataxic and she said that she will have some swallowing difficulty will benefit from inpatient rehab. 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 Gait ataxia with dysphagia; continue working with physical therapy and speech therapy and Occupational Therapy. Symptoms are improving but not at her baseline. Walked 50 feet but had a lot of pain and tenderness. She has had a high fall risk and will need to continue with inpatient rehab prior to discharging. 2. History of hypertension; blood pressure has been elevated since the fall. She is having a lot of pain and she has been eating or drinking well. Will continue monitoring her hemodynamics closely. Risk of strokes increase signif icantly at her age so we will need to monitor her hemodynamics closely 3. History of Parkinson disease. Patient has developed progressive cerebellar ataxia as well as swallowing dysfunction. Speech therapy will be consulted. Patient has Parkinson disease and if her swallowing worsens she is at high risk of aspiration pneumonia. Will continue monitoring this closely 4. GI DVT prophylaxis - Advance Directives Does patient have a Living Will: No Does patient have a Durable POA for Healthcare: No - Code Status/Comfort Care Code Status: Full Code Physician Review: Patient Assessed, Agree with Above Assessment and Plan
--- NOTE | 2024-12-28 15:51 | P.DS ---
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 who presented to the emergency room with pain on ambulating. Patient normally gets around fairly well at the assisted living, but over the last few weeks she has found it more and more difficult to ambulate. She apparently had fallen a week ago and since the fall she suffered a hematoma to the right pelvis. She has a lot of bruising in that region. Whenever she puts any pressure on it she decides not to move. The family decided to come into the hospital for further evaluation. In the ER, she is having a lot of pain and she has dementia so she does not remember everything that happened during the fall. However she does state that she is having a lot of pain whenever she moves her right leg. Patient will be admitted to the hospital for more aggressive care. She looks dehydrated with her lipase being elevated. Patient has not had much of an appetite since the fall. At this time patient will be admitted to the hospital for further workup. Hospital Course: Patient is a 89-year-old female came to the hospital with generalized weakness and a fall. She lives at [facility]. She has done well clinically. At this time patient is doing well and stable for discharge. Patient will continue at inpatient rehab. She has got a significant bruise on her pelvis. This makes ambulating difficulty. She will be using a standing walker which she will need instructions on while in rehabilitation. Patient does have Alzheimer's but she is compliant with her treatments. Her [id number] stays with the patient and she assist in patient's day-to-day care. Vital Signs/Physical Exam: Temp Pulse Resp BP Pulse Ox 97.5 F 78 15 158/69 H 98 12/28/24 15:48 12/28/24 15:48 12/28/24 15:48 12/28/24 15:48 12/28/24 15:48 General: Alert, In no apparent distress, Oriented x2 Laboratory Data at Discharge: WBC 9.10 thou/uL (4.3-10.9) 12/26/24 08:39 Hgb 10.9 g/dL (12.0-15.0) L 12/26/24 08:39 Hct 31.8 % (36.0-45.0) L 12/26/24 08:39 Plt Count 306 thou/uL (152-406) 12/26/24 08:39 PT 11.3 SECONDS (10-13.0) 12/26/24 08:39 INR 1.00 12/26/24 08:39 APTT 26.7 SECONDS (27.2-37.4) L 12/26/24 08:39 Sodium 136 mEq/L (136-145) D 12/26/24 08:39 Potassium 3.2 mEq/L (3.5-5.1) L 12/26/24 08:39 BUN 9 mg/dL (7-18) 12/26/24 08:39 Creatinine 0.87 mg/dL (0.55-1.02) 12/26/24 08:39 Glucose 93 mg/dL (74-106) 12/26/24 08:39 Magnesium 2.1 mg/dL (1.6-2.4) 12/25/24 11:35 Total Bilirubin 0.8 mg/dL (0.2-1.0) 12/26/24 08:39 AST 14 U/L (15-37) L 12/26/24 08:39 ALT 18 U/L (13-56) 12/26/24 08:39 Alkaline Phosphatase 51 U/L (45-117) 12/26/24 08:39 Triglycerides 61 mg/dL (<150) 12/26/24 08:39 Cholesterol 173 mg/dL (<200) 12/26/24 08:39 HDL Cholesterol 92 mg/dL (40-60) H 12/26/24 08:39 Cholesterol/HDL Ratio 1.88 12/26/24 08:39 Lipase 118 U/L (13-75) H 12/26/24 08:39 Home Medications: Acetaminophen [Tylenol Extra Strength] 500 mg PO BID 12/25/24 Acetaminophen [Tylenol] 650 mg PO Q6H PRN 12/25/24 Carbidopa/Levodopa [Carbidopa-Levodopa 10-100 Tab] 1 each PO TID 12/25/24 Donepezil HCl 10 mg PO DAILY 12/25/24 Hydralazine HCl 50 mg PO QID 12/25/24 Lidocaine 4% Patch [Lidoderm 5% Patch*] 1 patch .ROUTE BID 12/25/24 Memantine HCl 5 mg PO DAILY 12/25/24 Potassium Chloride 10 meq PO DAILY 12/25/24 Sertraline [Zoloft*] 25 mg PO DAILY 12/25/24 Tramadol HCl [Ultram] 50 mg PO Q6HR PRN 12/25/24 dilTIAZem HCL [Diltiazem 24Hr ER] 240 mg PO DAILY 12/25/24 lisinopriL [Lisinopril] 20 mg PO BID 12/25/24 Ensure Enlive 237 ml PO BID #60 can 12/28/24 New Medications: Ensure Enlive 237 ml PO BID #60 can Physician Discharge Instructions: Okay to DC to inpatient rehab. Patient is from [place] Diet: Regular Activity: Fall precautions Followup: LYNNETTE ROCK MD [Primary Care Provider] - 1-2 Weeks Time spent managing pt's care (in minutes): 35
[2024-12-28 20:34] VITALS: BP 177/74; TEMP 98.2
== END 2024-12-28 21:20 | DRG 59 ==
LOC: ER 10:40 → ERHOLD 16:24 → 2ND 17:07 → OBSVTOIN 12-26 15:47 → 2ND 12-26 20:52
PROVIDERS: ADMIT Hospitalist; ATTEND Hospitalist
DX: G11.9 Hereditary ataxia, unspecified (principal); E44.0 Moderate protein-calorie malnutrition; Z68.1 Body mass index [BMI] 19.9 or less, adult; I10 Essential (primary) hypertension; K52.9 Noninfective gastroenteritis and colitis, unspecified; K21.9 Gastro-esophageal reflux disease without esophagitis; S30.0XXA Contusion of lower back and pelvis, initial encounter; M62.50 Muscle wasting and atrophy, not elsewhere classified, unspecified site; G20.A1 Parkinson's disease without dyskinesia, without mention of fluctuations; G30.9 Alzheimer's disease, unspecified; F02.80 Dementia in other diseases classified elsewhere, unspecified severity, without behavioral disturbance, psychotic disturbance, mood disturbance, and anxiety; R29.6 Repeated falls; R13.10 Dysphagia, unspecified; Z88.5 Allergy status to narcotic agent; Z88.1 Allergy status to other antibiotic agents; Z91.81 History of falling; W18.30XA Fall on same level, unspecified, initial encounter; Y93.9 Activity, unspecified; Y92.099 Unspecified place in other non-institutional residence as the place of occurrence of the external cause; Y99.9 Unspecified external cause status
CPT/HCPCS: 36415; 70450; 71045; 71250; 72125; 74176; 80048; 80053; 80061; 80076; 81001; 82550; 82607; 83540; 83690; 83735; 83880; 84145; 84484; 85025; 85610; 85730; 86140; 93005; 96361; 96365; 96366; 96375; 97116; 97161; 97530; 99285; G0378; J0696; J1200; J1720; J2270; J2543; J2919; J7030; J7040